=== PATIENT | male | born 1975 | race African-American/Black ===

== ENCOUNTER 2022-01-31 13:35 | Emergency (ER) | payer OTHER ==
[2022-01-31 14:05] VITALS: BP 143/81; PULSE 99; RESP 18; TEMP 98.6; BMI 29.1
== END 2022-01-31 15:24 | disposition home or self-care (01) ==
LOC: JERFT 13:35
DX: S22.41XA Multiple fractures of ribs, right side, initial encounter for closed fracture (principal)
CPT/HCPCS: 99283-25